=== PATIENT | male | born 1960 | race Caucasian/White ===

== ENCOUNTER 2017-03-13 07:30 | Inpatient (IN) ==
[2017-03-13] MEDS ORDERED: LIDOCAINE 1% (10mg/ml) 10mL MDV SQ ONE (10:18)
[2017-03-13] MEDS ORDERED: ACETAMINOPHEN 500 MG TABLET PO ONE (10:18)
[2017-03-13] MEDS ORDERED: NOZIN NASAL SWAB NAS ONE ×2 (10:18→16:27)
[2017-03-13] MEDS ORDERED: TRANEXAMIC ACID 1,000 MG in NS 100 ML IV ONE (10:18)
[2017-03-13] MEDS ORDERED: CLINDAMYCIN PB 900 MG/50 ML BAG IV ONE (10:18)
[2017-03-13] MEDS ORDERED: FAMOTIDINE PB 20 MG/50 ML BAG IV ONE (10:18)
[2017-03-13] MEDS ORDERED: SALINE FLUSH 10ml SYRINGE IVF PRN (10:18)
[2017-03-13] MEDS ORDERED: METOCLOPRAMIDE 10mg/2ml INJECTION IVP ONE (10:18)
[2017-03-13] MEDS ORDERED: ONDANSETRON 4 MG/2 ML INJECTION IVP ONE (10:18)
[2017-03-13 10:33] VITALS: BMI 51.7
[2017-03-13] MEDS: LR 1,000 ML IV SCH ×2 (10:55→14:47)
--- NOTE | 2017-03-13 11:50 | Anesthesia Preoperative Report ---
Anesthesia Preoperative Record - Date and Time Date: 03/13/17 Preoperative Diagnosis: T84.84XD Rt TKA Rev Proposed Procedure: revision TKA NPO Since Date: 03/13/17 NPO Since Time: 11:49 Allergies/Adverse Reactions: Allergies Allergy/AdvReac Type Severity Reaction Status Date / Time skin margareth Allergy Unknown swelling, Uncoded 02/24/17 15:43 infection amoxicillin trihydrate AdvReac Intermediate C DIFF Uncoded 02/24/17 15:43 potassium clavulanate AdvReac Intermediate C DIFF Uncoded 02/24/17 15:43 - Vital Signs Vital Signs: Temperature 98.6 F 03/13/17 10:32 Pulse Rate 62 03/13/17 11:10 Respiratory Rate 18 03/13/17 10:32 Blood Pressure 152/72 H 03/13/17 11:10 Pulse Oximetry 96 03/13/17 10:32 Oxygen Delivery Method Room Air Height and Weight: Height 1.79 m Weight 165.9 kg Body Mass Index 51.7 - Medications Inpatient Medications: Current Medications Lactated Ringer's (Lactated Ringers) 1,000 mls @ 50 mls/hr IV .Q20H ALBERTO Last Admin: 03/13/17 10:55 Dose: 50 mls/hr Epinephrine HCl 0.25 mg/Bupivacaine HCl 30 ml/Morphine Sulfate 15 mg/Ketorolac Tromethamine 60 mg/Sodium Chloride 65.25 mls @ 1 mls/hr OPSITE INTRAOP ONE PRN Reason: Protocol Stop: 03/16/17 03:32 Lidocaine HCl (Xylocaine-Mpf 1% Vial) 1 mg ID O ONE Stop: 03/13/17 15:34 Sodium Chloride (Iv Flush) 10 - 80 ml IVF PRN PRN PRN Reason: [place] Home Medications: Home Medications Medication Instructions Recorded Confirmed Type Cetirizine HCl [Zyrtec] 1 mg PO HS PRN #0 06/17/10 03/13/17 History albuterol sulfate HFA 90 1 puff INH Q6H PRN 02/24/17 03/13/17 History mcg/actuation aerosol inhaler montelukast 10 mg tablet 10 mg PO DAILY 02/24/17 03/13/17 History sildenafil 50 mg tablet 50 mg PO DAILY PRN 02/24/17 03/13/17 History triamcinolone acetonide 55 1 spray EA NOSTRIL DAILY 02/24/17 03/13/17 History mcg/actuation nasal spray,aerosol Is Patient on Beta Landon?: No - Medical History Respiratory: Reports: Asthma, Sleep Apnea Cardiovascular: Reports: Hypertension Gastrointestional: Reports: Morbid Obesity - Surgical History HEENT Surgeries: Reports: Tonsillectomy Respiratory Surgery/Treatments: Reports: CPAP Use GI Surgery/Treatments: Reports: Appendectomy, Colonoscopy, Other ( hemorrhoidectomy) Musculoskeletal Surgery/Tx: Reports: Total Knee Replacement (Right-2011) Hx Family Anesthesia Reaction: No History of Motion Sickness: No - Social History Smoking Status: Never smoker Hx Chewing Tobacco Use: No Second Hand Exposure: No Substance Use Type: does not use Alcohol Intake Frequency: does not drink - Pertinent Findings EKG Rhythm: Normal Sinus Rhythm - Physical Exam Respiratory Exam: Present: lungs clear Cardiovascular Exam: Present: regular rate and rhythm, no murmur - Airway Assessment Mallampati Score: IV TMD: 3 Fingerbreadths Teeth: chipped teeth/crowns Overall Assessment: may be difficult mask vent, may be difficult intubation - ASA ASA Score: 3 - Plan Regional/Trunk Block: Spinal - Discussion Discussion: Discussed risks/options/alternatives of anesthesia and questions answered. Patient consents. Nursing pain assessment noted. Present for Discussion: spouse Attestation Statement: Prior to the delivery of any anesthetic medication, I examined the patient, developed the plan, obtained the patient's consent and discussed the risk and benefits of the procedure with the patient/guardian. - Additional Information Seen by Anesthesia: Yes
[2017-03-13] MEDS ORDERED: VANCOMYCIN 1,000 MG INJECTION ONE (11:54)
[2017-03-13] MEDS ORDERED: PROPOFOL 500 MG/50 ML VIAL IV ONE (12:02)
[2017-03-13] MEDS ORDERED: PROPOFOL 40 ML ONE (12:02)
[2017-03-13] MEDS ORDERED: MIDAZOLAM 2mg/2ml INJECTION ONE ×2 (12:06→12:35)
[2017-03-13] MEDS ORDERED: GLYCOPYRROLATE 0.4 MG/2 ML INJECTION ONE (12:11)
[2017-03-13] MEDS: EPINEPHrine 0.25 MG, BUPIVACAINE 0.25% PF 30 ML, MORPHINE SULFATE 15 MG, KETOROLAC INJ ... OPSITE ONE (13:20)
[2017-03-13] MEDS ORDERED: PROPOFOL 20 ML ONE ×2 (13:45→14:05)
--- NOTE | 2017-03-13 14:14 | History & Physical Update ---
- History and Physical Update Date: 03/13/17 Update: I evaluated this patient and found no changes in the history and clinical exam findings. The treatment plan and recommendations are also unchanged from the previous documentation.
[2017-03-13] MEDS ORDERED: ROPIVACAINE 0.5% (5mg/ml) 30ml INJ ONE (14:16)
--- NOTE | 2017-03-13 14:16 | Post Procedure Note ---
Date of Procedure: 03/13/17 Orthopedic Surgeon: Roberth Orthopedic Assisting Surgeon: James Caceres Anesthesia: Regional Block Procedure: Procedures Operation Date: 03/13/17 12:30 Actual Procedures p Arthroplasty Revision Total Knee with tibial insert exchange.(Right) - Ru Lepe MD Exchange of tibial spacer from a previous right TKA. Condition: Stable Disposition: floor
[2017-03-13] MEDS ORDERED: VANCOMYCIN 1,000 MG INJECTION IAR ONE (14:26)
--- NOTE | 2017-03-13 14:35 | Anesthesia Procedure Note ---
Peripheral Nerve Blockade - Procedure Physician: Ru Lepe MD Date: 03/13/17 Surgical Procedure: revision tka Discussion: Discussed risks/options/alternatives of anesthesia and questions answered. Patient consents. Nursing pain assessment noted. Block Start: 14:25 Block Stop: 14:29 Blocked Employed: [employer] Indication: Post-Operative Pain Approach: Right Side Confirmed Position: Supine Patient: Consent, Risks/Benefits Discussed, Informed, Post Block Act. Discussed IV Sedation: No Initial Vital Signs: Temperature 98.6 F 03/13/17 10:32 Temperature Source Oral 03/13/17 10:32 Pulse Rate 68 03/13/17 10:32 Respiratory Rate 18 03/13/17 10:32 Blood Pressure 177/102 H 03/13/17 10:32 Blood Pressure Mean 127 03/13/17 10:32 Blood Pressure Position Sitting 03/13/17 10:32 Pulse Oximetry 96 03/13/17 10:32 Oxygen Delivery Method 03/13/17 10:32 Post Vital Signs: Temperature 98.6 F 03/13/17 10:32 Pulse Rate 62 03/13/17 12:12 Respiratory Rate 18 03/13/17 12:12 Blood Pressure 152/72 H 03/13/17 11:10 Pulse Oximetry 96 03/13/17 12:12 Oxygen Delivery Method Room Air Initial Pain Pain Score: 0 Post Block Pain Score: 0 Prep: Chlorhexadine/ETOH Ultrasound Used?: Yes - Injectate Ropivacaine (%): 0.5 Ropivacaine (mL): 20 Was Epi 1:200,000 Used?: No Injection: Injection made incrementally with constant monitoring and aspiration every ml
[2017-03-13] MEDS ORDERED: GLYCOPYRROLATE 0.4 MG/2 ML INJECTION IVP ONE ×2 (15:00→15:17)
--- NOTE | 2017-03-13 15:32 | Anesthesia Postoperative Note ---
- Status Patient Participated in Evaluation: Patient Participated in Person Vital Signs: Temperature 97.5 F 03/13/17 14:19 Pulse Rate 41 L 03/13/17 15:00 Respiratory Rate 22 03/13/17 14:30 Blood Pressure 118/58 03/13/17 15:00 Pulse Oximetry 99 03/13/17 15:00 Oxygen Delivery Method Nasal Cannula Oxygen Flow Rate 3 Respiratory Function: Airway Patent Cardiovascular Function: Regular Pulse EKG Rhythm: Normal Sinus Rhythm Mental Status: Alert and Oriented Pain Intensity: 0 Hydration: Taking PO Fluids, IV Infusing Complications During Recover: None Apparent Post Anesthesia Care Notes: jonathan given IV in PACU for bradycardia - Follow-Up Instructions Instructions: Per Surgeon
[2017-03-13] MEDS ORDERED: LIDOCAINE 1% (10mg/ml) 2mL INJ PF SDV ID ONE (15:33)
[2017-03-13] MEDS ORDERED: DiphenhydrAMINE 25 MG CAPSULE PO PRN (16:27)
[2017-03-13] MEDS ORDERED: NAPROXEN 220 MG TABLET PO PRN (16:27)
[2017-03-13] MEDS ORDERED: DiphenhydrAMINE 50 MG/ML INJECTION IVP PRN (16:27)
[2017-03-13] MEDS ORDERED: CETIRIZINE 10 MG TABLET PO PRN (16:27)
[2017-03-13] MEDS ORDERED: LORazepam 1 MG TABLET PO PRN (16:27)
[2017-03-13] MEDS ORDERED: ALBUTEROL 2.5mg/3ml (0.083%) NEB AEROSOL PRN (16:27)
[2017-03-13] MEDS ORDERED: ONDANSETRON 4 MG/2 ML INJECTION IVP PRN (16:27)
[2017-03-13] MEDS: NS 1,000 ML IV SCH (16:39)
[2017-03-13] MEDS: Oxycodone *IR* 5 MG TABLET PO PRN ×2 (16:53→19:17)
[2017-03-13] MEDS: ACETAMINOPHEN 325 MG TABLET PO SCH ×2 (16:54→22:09)
[2017-03-13] MEDS ORDERED: WARFARIN 5 MG TABLET PO ONE (17:39)
--- NOTE | 2017-03-13 17:46 | Pharmacy Consult ---
Pharmacy Consult-Warfarin - Consult Information 56 y.o. Male postop Arthroplasty revision total knee. Warfarin protocol ordered postop for DVT prophylaxis. goal INR 1.5 to 2.0. Will give Warfarin 5 mg po x 1 dose today. Pharmacy will monitor and adjust as needed. Thank you for the consult, Cynthia Cheng RPh
[2017-03-13] MEDS: CLINDAMYCIN PB 900 MG/50 ML BAG IV SCH ×2 (18:50→23:27)
--- NOTE | 2017-03-13 19:02 | XRay Report ---
EXAM: XR knee RT 2V COMPARISON: 02/27/2013. 04/10/2012. HISTORY: Post op . FINDINGS: Right total hip prosthesis is in place which appears to be in good position and alignment. There is no evidence for loosening, fracture, or infection. IMPRESSION: Right knee prosthesis in place which appears to be in good position and alignment. LOCATION OF DICTATION: [facility] .
[2017-03-13] MEDS ORDERED: SENNOSIDES 8.6 MG TABLET PO SCH (22:00)
[2017-03-13] MEDS: DOCUSATE SODIUM 100 MG CAPSULE PO SCH (22:09)
[2017-03-13] MEDS: NOZIN NASAL SWAB NAS SCH (22:09)
[2017-03-13] MEDS: ENOXAPARIN 40 MG/0.4 ML INJECTION SQ SCH (22:09)
[2017-03-14] MEDS: CLINDAMYCIN PB 900 MG/50 ML BAG IV SCH (05:16)
[2017-03-14] MEDS: NOZIN NASAL SWAB NAS SCH ×2 (05:16→15:42)
[2017-03-14] MEDS: NS 1,000 ML IV SCH (06:15)
--- NOTE | 2017-03-14 07:21 | Pharmacy Consult ---
Pharmacy Consult-Warfarin - Laboratory Information 03/14/17 04:26 INR 1.04 COUMADIN CONSULT (Recurring): Today's INR = 1.04. 56 y.o. Male postop Arthroplasty revision total knee. Warfarin protocol ordered postop for DVT prophylaxis. goal INR 1.5 to 2.0. I ordered Warfarin 5 mg po x 1 dose today. The pharmacy will continue to monitor and adjust as needed. Thank you for the consult, Mike Wheatley, Pharmacist.
--- NOTE | 2017-03-14 07:53 | Orthopedic Progress Note ---
Date: Subjective/Severity of Illness: Simón is feeling well this AM. His pain is well controlled with one Oxycodone. He has been out of bed and says his knee feels much better. Bradycardia is noted on review of vitals today. This was present even preoperatively. He denies any sense of palpitation or chest pain. He describes having had a Holter monitor placed in the past by Dr. Hoffman. Results showed "occasional skipped beats, but the doctor said I was in better health than him". He did have low O2 readings last night. He is known to have JILLIAN, and is on CPAP. Orthopedic Objective PO Vital signs: Temperature 97.8 F 03/14/17 04:00 Pulse Rate 59 L 03/14/17 04:00 Respiratory Rate 18 03/13/17 23:41 Blood Pressure 138/92 H 03/14/17 04:00 Pulse Oximetry 96 03/14/17 04:00 Oxygen Delivery Method Room Air Oxygen Flow Rate 3 Height and Weight: Height 5 ft 10.5 in Weight 365 lb 11.95 oz Body Mass Index 51.7 - Constitutional General Appearance: Present: alert, orientated x3, no acute distress - Respiratory Exam Present: non-labored - Cardiovascular Exam Present: pedal pulses intact Capillary Refill: < 2-3 Seconds - Abdominal Exam Present: normoactive BS x4 - Extremities Exam Extremities: Present: pulses intact, normal capillary refill. Absent: calf tenderness, extremity cold to touch - Knee Exam Knee Exam: Present: ROM (0-90). Absent: painful ROM - Surgical Site Incision: clean, dry, intact, no drainage - Integumentary Exam Present: pink, warm, dry - Neurological Exam Present: intact to light touch, no deficits - Psychiatric Exam Present: normal affect, attentive - Wound Management Right Knee Secondary Dressing: Mepilex - Labs Result Diagrams: 03/14/17 04:26 03/14/17 04:26 Abnormal lab results 03/14/17 Range/Units 04:26 Hgb 12.9 L (13.5-17.5) GM/DL Hct 39.2 L (41-53) % H & H 03/14/17 Range/Units 04:26 Hgb 12.9 L (13.5-17.5) GM/DL Hct 39.2 L (41-53) % Coagulation 03/14/17 Range/Units 04:26 INR 1.04 (0.99-1.21) Orthopedic Assessment and Plan (1) Pain due to internal orthopedic prosthetic devices, implants and grafts, subsequent encounter Status: Acute Assessment and Plan: Mobilize with PT Lovenox/Coumadin for DVT prevention monitor with telemetry in view of bradycardia Likely discharge late today. Hospital Course Summary Disclaimer: The visit summary below is not to be considered part of the above Progress Note.
[2017-03-14] MEDS ORDERED: BENAZEPRIL 10 MG TABLET PO SCH (09:00)
[2017-03-14] MEDS ORDERED: MONTELUKAST 10 MG TABLET PO SCH (09:00)
[2017-03-14] MEDS ORDERED: FLUTICASONE NASAL SPRAY 50mcg EA NOSTRIL SCH (09:00)
[2017-03-14] MEDS ORDERED: POLYETHYL GLYCOL 3350 17gm PACKET PO SCH (09:00)
[2017-03-14] MEDS ORDERED: SALINE FLUSH 10ml SYRINGE IVF PRN (09:29)
[2017-03-14] MEDS: ACETAMINOPHEN 325 MG TABLET PO SCH ×2 (09:38→13:09)
[2017-03-14] MEDS: DOCUSATE SODIUM 100 MG CAPSULE PO SCH (09:40)
[2017-03-14] MEDS: Oxycodone *IR* 5 MG TABLET PO PRN ×2 (09:54→15:39)
--- NOTE | 2017-03-14 11:42 | Cardiology Consult Note ---
History of Present Illness Consult date: 03/14/17 <Jodi Cano 03/14/17 11:49> Requesting physician: Ru Lepe <Jodi Cano 03/14/17 11:49> Chief complaint: bradycardia <JeromeJodi grover 03/14/17 11:49> History of present illness: Simón is a 56 year old male who has a history of HTN , HLD, JILLIAN and obesity who underwent right total knee replacement and has had some post-operative bradycardia for which Dr. Villalta is consulted/ He denies chest pain or pressure, palpitations, racing or skipping heart beats. No dyspnea , dizziness, lightheadedness or near syncope. <Jodi Cano 03/14/17 11:49> Review of Systems - Constitutional Constitutional: Absent: chills, fever(s) <Jodi Cano 03/14/17 11:49> - EENMT Eyes: Absent: change in vision <Jodi Cano 03/14/17 11:49> Balance: Absent: vertigo <Jodi Cano 03/14/17 11:49> Mouth/Throat: Absent: sore throat <Jodi Cano 03/14/17 11:49> - Cardiovascular Cardiovascular: Absent: chest pain, palpitations, syncope, dyspnea on exertion, orthopnea, heart murmur <Jodi Cano 03/14/17 11:49> Rhythm: Present: regular rhythm <Jodi Cano 03/14/17 11:49> - Respiratory Respiratory: Absent: cough, dyspnea <Jodi Cano 03/14/17 11:49> - Gastrointestinal Gastrointestinal: Absent: diarrhea, nausea, vomiting <Jodi Cano 11:49> - Genitourinary Genitourinary: Absent: dysuria <Jodi Cano 03/14/17 11:49> - Integumentary/Breasts Integumentary: Absent: rash <Jodi Cano 03/14/17 11:49> - Neurological Neurological: Absent: dizziness <Jodi Cano 03/14/17 11:49> [facility] Patient Stated Medical History Peripheral Neuropathy Yes: in feet Cardiac Arrhythmia Yes Hypertension Yes Asthma Yes Sleep Apnea Yes Osteoarthritis Yes Clostridium Difficile Yes: after Augmentin MRSA Yes: on back of neck several years ago Anesthesia Reactions Yes: Too awake w/ spinal during TKA Clinic Medical History (Last Updated 03/14/17 @ 11:55 by Jodi Cano APRN) Asthma due to seasonal allergies (Chronic Medical) Hypertension, benign (Chronic Medical) Obstructive sleep apnea (Chronic Medical) Seasonal allergic rhinitis (Chronic Medical) <Chino Villalta 03/15/17 12:01> Patient Stated Medical History Peripheral Neuropathy Yes: in feet Cardiac Arrhythmia Yes Hypertension Yes Asthma Yes Sleep Apnea Yes Osteoarthritis Yes Clostridium Difficile Yes: after Augmentin MRSA Yes: on back of neck several years ago Anesthesia Reactions Yes: Too awake w/ spinal during TKA Clinic Medical History (Last Updated 02/24/17 @ 16:14 by Kathryn Villasenor APRN ) Asthma due to seasonal allergies (Chronic Medical) Seasonal allergic rhinitis (Chronic Medical) Hypertension, benign (Chronic Medical) Obstructive sleep apnea (Chronic Medical) <Jodi Cano 03/14/17 11:49> Surgical History: Rt TKA 6 yrs ago. Appendectomy. Colonscopy 2014 <Jodi Cano 03/14/17 11:49> Family History: Family History (Last Reviewed 02/24/17 @ 10:26 by RAJNI Flores) Mother Aneurysm High blood pressure Breast cancer Father High blood pressure Colon cancer Kidney disease Thyroid disease Sister Breast cancer <Chino Villalta - 03/15/17 12:01> Family History (Last Reviewed 02/24/17 @ 10:26 by RAJNI Flores) Mother Aneurysm High blood pressure Breast cancer Father High blood pressure Colon cancer Kidney disease Thyroid disease Sister Breast cancer <Jodi Cano 03/14/17 11:49> - Social History Smoking status: Never smoker <Jodi Cano 03/14/17 11:49> Substance use type: does not use <Jodi Cano 03/14/17 11:49> Alcohol intake frequency: holidays/special occasions only <Jodi Cano 11:49> Housing: house <Jodi Cano 03/14/17 11:49> Household members: spouse, children <Jodi Cano 03/14/17 11:49> Current occupational status: employed <Jodi Cano M - 03/14/17 11:49> 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 <Jodi Cano M - 03/14/17 11:49> Current residence: Apartment/Private Home <Jodi Cano Pedro - 03/14/17 11:49> Medications Home Medications Medication Instructions Recorded Confirmed Type Cetirizine HCl [Zyrtec] 1 mg PO HS PRN #0 06/17/10 03/13/17 History albuterol sulfate HFA 90 1 puff INH Q6H PRN 02/24/17 03/13/17 History mcg/actuation aerosol inhaler montelukast 10 mg tablet 10 mg PO DAILY 02/24/17 03/13/17 History sildenafil 50 mg tablet 50 mg PO DAILY PRN 02/24/17 03/13/17 History triamcinolone acetonide 55 1 spray EA NOSTRIL DAILY 02/24/17 03/13/17 History mcg/actuation nasal spray,aerosol <Chino Villalta - 03/15/17 12:01> Allergies Allergy/AdvReac Type Severity Reaction Status Date / Time amoxicillin [From Augmentin] AdvReac Intermediate C DIFF Verified 03/14/17 07:26 clavulanic acid AdvReac Intermediate C DIFF Verified 03/14/17 07:26 [From Augmentin] skin margareth Allergy Unknown swelling, Uncoded 02/24/17 15:43 infection <Chino Villalta - 03/15/17 12:01> Exam Vital signs: Temperature 97.0 F 03/14/17 11:00 Pulse Rate 68 03/14/17 16:00 Respiratory Rate 20 03/14/17 11:00 Blood Pressure 153/93 H 03/14/17 11:00 Pulse Oximetry 94 03/14/17 11:00 Oxygen Delivery Method Room Air Oxygen Flow Rate 3 <Chino Villalta - 03/15/17 12:01> Temperature 97.1 F 03/14/17 07:50 Pulse Rate 49 L 03/14/17 07:50 Respiratory Rate 18 03/14/17 07:50 Blood Pressure 137/92 H 03/14/17 07:50 Pulse Oximetry 95 03/14/17 07:50 Oxygen Delivery Method Room Air Oxygen Flow Rate 3 <Jodi Cano 03/14/17 11:49> - Constitutional no acute distress, morbidly obese, cooperative <Jodi Cano 03/14/17 11: 49> - Routine HEENT Exam Head: Present: normocephalic <Jodi Cano 03/14/17 11:49> Nose: moist mucous membranes <Jodi Cano 03/14/17 11:49> - Routine Neck Exam Absent: JVD, carotid bruit <Jodi Cano 03/14/17 11:49> - Routine Chest/Breast/Axilla Exam Chest wall: Absent: tenderness <Jodi Cano 03/14/17 11:49> - Routine Respiratory Exam Present: CTA bilaterally. Absent: rales, wheezes <Jodi Cano 03/14/17 11:49> - Routine Cardiovascular Exam Present: no murmur, bradycardia. Absent: JVD <Jodi Cano 03/14/17 11:49 > - Routine Abdominal Exam Present: soft, normoactive bowel sounds <Jodi Cano 03/14/17 11:49> - Routine Extremities Exam Present: edema <Jodi Cano 03/14/17 11:49> - Routine Skin Exam Present: intact, dry, warm <Jodi Cano 03/14/17 11:49> - Routine Neurological Exam Present: alert, oriented X3 <Jodi Cano [facility] 03/14/17 11:49> - Routine Psychiatric Exam Present: normal affect, normal thought process <Jodi Cano 03/14/17 11: 49> Results 03/14/17 04:26 03/14/17 04:26 <Chino Villalta - 03/15/17 12:01> CBC 03/14/17 Range/Units 04:26 WBC 6.5 (4.5-11.0) T/MM3 RBC 4.60 (4.50-5.90) M/MM3 Hgb 12.9 L (13.5-17.5) GM/DL Hct 39.2 L (41-53) % Plt Count 226 (130-400) T/MM3 Comprehensive Metabolic Panel 03/14/17 Range/Units 04:26 Sodium 140 (134-144) MEQ/L Potassium 4.1 (3.6-5) MEQ/L Chloride 106 (98-107) MEQ/L Carbon Dioxide 29 (22-30) MEQ/L BUN 20.0 (9-20) MG/DL Creatinine 1.2 (0.8-1.5) MG/DL Glucose 90 (75-110) MG/DL Calcium 9.2 (8.4-10.2) MG/DL Intake and Output 03/13/17 03/14/17 03/14/17 22:59 06:59 14:59 Intake Total 2145.500 / 2145.500 954.666 / 954.666 542.667 / 542.667 Output Total 300 / 300 425 / 425 275 / 275 Balance 1845.500 / 1845.500 529.666 / 529.666 267.667 / 267.667 Intake: IV 965.500 / 965.500 854.666 / 854.666 70.667 / 70.667 CLEOCIN PREMIX 900 mg In 50 / 50 100 / 100 50 ml @ 100 mls/hr IV Q6H ALBERTO Rx#:[id number] Lactated Ringers 1,000 ml 740.833 / 740.833 @ 50 mls/hr IV .Q20H ALBERTO Rx#:[id number] Normal Saline 1,000 ml @ 174.667 / 174.667 754.666 / 754.666 70.667 / 70.667 80 mls/hr IV .[id number] ALBERTO Rx#:[id number] Oral 1180 / 1180 100 / 100 472 / 472 Output: Urine 300 / 300 425 / 425 275 / 275 Other: # Voids 1 Laboratory Results - last 48 hr 03/14/17 03/14/17 03/14/17 04:26 04:26 04:26 WBC 6.5 RBC 4.60 Hgb 12.9 L Hct 39.2 L MCV 85.2 MCH 28.0 MCHC 32.9 RDW Std Deviation 42.3 Plt Count 226 MPV 9.6 INR 1.04 Turbidity < 20 Sodium 140 Potassium 4.1 Chloride 106 Carbon Dioxide 29 Anion Gap 5 BUN 20.0 Creatinine 1.2 GFR Calculation 62 BUN/Creatinine Ratio 17 Glucose 90 Calculated Osmolality 272 Calcium 9.2 Icterus Index < 2 Specimen Hemolysis < 15 <Jodi Cano Pedro - 03/14/17 11:49> - Imaging and Cardiology Echo: pending <Jodi Cano Pedro - 03/14/17 11:49> EKG results: image reviewed <JeromeJodi Vasquez 03/14/17 11:49> Assessment and Plan (1) Obstructive sleep apnea Status: Chronic (2) Hypertension, benign Status: Chronic (3) Mixed hyperlipidemia Status: Chronic (4) Bradycardia Status: Acute (5) Status post total right knee replacement Status: Acute <AmbarChino - 03/15/17 12:01> (1) Bradycardia Status: Acute HR in the upper 40s and lower 50s. He is asymptomatic. Has no previous history of heart disease. Risk factors are HTN, HLD. Will check TSH, Mag, obtain EKG and Echo. (2) Hypertension, benign Status: Chronic Continue current therapy, routine monitoring (3) Mixed hyperlipidemia Status: Chronic (4) Obstructive sleep apnea Status: Chronic (5) Status post total right knee replacement Status: Acute <JeromeJodi Pedro 03/14/17 12:59> - Attestation Attestation Narrative: 03/15/17 12:01 Recommendation After examining the patient I agree with the above assessment. I am involved in the formulation of the patient's plan of care. <Chino Villalta 03/15/17 12:01> Hospital Course Summary Disclaimer: The visit summary below is not to be considered part of the above Progress Note. <Chino Villalta - 03/15/17 12:01> The visit summary below is not to be considered part of the above Progress Note. <Jodi Cano 03/14/17 11:49> Sepsis Assessment - Evaluation Sepsis screening result: No Definite Risk <Jodi Cano 03/14/17 11:49>
[2017-03-14] MEDS ORDERED: CLINDAMYCIN PB 900 MG/50 ML BAG IV ONE (12:00)
[2017-03-14] MEDS ORDERED: WARFARIN 5 MG TABLET PO SCH (12:00)
[2017-03-14 13:51] VITALS: BP 153/93; PULSE 68; RESP 20; TEMP 97; O2SAT 94
[2017-03-14] MEDS ORDERED: CLINDAMYCIN 300 MG CAPSULE PO ONE (14:00)
[2017-03-14] MEDS ORDERED: SENNOSIDES 8.6 MG TABLET PO PRN (14:10)
--- NOTE | 2017-03-14 14:38 | Operative Note ---
DATE 03/13/2017 SURGEON Ru Lepe MD EMAIL MANAGER James Caceres PA-C PREOPERATIVE DIAGNOSIS Polyethylene failure, right total knee. POSTOPERATIVE DIAGNOSIS Polyethylene failure, right total knee. OPERATION Revision of right total knee, polyethylene exchange. DESCRIPTION OF PROCEDURE With the patient in supine position, under satisfactory spinal anesthesia, the right knee was prepped and draped sterilely. Preop time-out was taken confirming the correct side and procedure. The patient received antibiotics and tranexamic acid preoperatively. The tourniquet was inflated and an incision was made over the anterior aspect of the knee, excising the prior scar. This was then deepened down through subcutaneous tissue. The medial capsule was opened with the incision extending both proximally and distally to allow for thorough exposure. Patella was reflected somewhat laterally. The medial side was taken down to improve exposure as well. It was evident that the polyethylene spacer had popped out of the locking tray and was loose which would certainly explain this patient's symptoms and findings. The spacer was then removed without difficulty and the periphery was debrided of any scar tissue so that a new spacer could be inserted. The area was then thoroughly irrigated with antibiotic solution. Trials were done. We put in a Benkyo Player double-high 12 mm spacer. This was locked into the tibial tray. The patient had full extension and flexed to better than 100 degrees easily. Overall stability seemed good. Wound was then again irrigated. Betadine was inserted into the wound for about 2-3 minutes. We also injected the pain cocktail in the capsule and subcutaneous tissues around the knee. Vancomycin powder was then inserted and the wound was closed using #1 Vicryl on the capsule and routine closure of the skin. Sterile dressings were applied. The patient tolerated this well and was returned to the recovery room in good condition. RADHA
--- NOTE | 2017-03-14 14:49 | Discharge Summary ---
Orthopedic Discharge Info Date of admission: 03/13/17 10:08 Anticipated date of discharge: 03/14/17 Primary care physician: Simón Casillas MD Attending Physician: Ru Lepe MD Consults: 03/13/17 10:18 Consult to Anesthesiology [CONS] Routine Consulting Provider: MURIEL Smith Reason For Exam: Preoperative Assessment 03/13/17 16:27 Case Management Consult [CONS] Routine Reason For Exam: Discharge Planning DME-Walker [CONS] Routine Height: 5 ft 10.5 in Weight: 365 lb 11.95 oz Comment: change dressing in 2 weeks Pharmacy Consult [CONS] Routine Pharmacy Consult: Coumadin/Warfarin Total Joint Outpatient Therapy [CONS] Routine Comment: change dressing in 2 weeks 03/14/17 11:25 Physician Consult [CONS] Routine Consulting Provider: Chino Villalta Reason For Exam: BRADYCARDIA Ordering Provider has Notified Disease Intervention Specialist: Yes - Discharge Diagnosis (1) Pain due to internal orthopedic prosthetic devices, implants and grafts, subsequent encounter Status: Acute - Procedures Procedures: Procedures Total knee replacement (04/10/12) Poly spacer exchange R TKA 03/13/17. - Laboratory Result Diagrams: 03/14/17 04:26 03/14/17 04:26 Laboratory: Abnormal lab results 03/14/17 Range/Units 04:26 Hgb 12.9 L (13.5-17.5) GM/DL Hct 39.2 L (41-53) % H & H 03/14/17 Range/Units 04:26 Hgb 12.9 L (13.5-17.5) GM/DL Hct 39.2 L (41-53) % Coagulation 03/14/17 Range/Units 04:26 INR 1.04 (0.99-1.21) Orthopedic Discharge HPI - HPI Comments Simón had a R TKA about [address] Lepe. He developed a sudden onset of pain and had a shifting sensation in the knee. Xrays suggested the tibial spacer had slipped out of the tibial tray. Pt was admitted for surgical revision and possible exchange of the tibial spacer. See H&P for more details. Orthopedic Hospital Course Hospital course: 03/14/17 14:45 After appropriate preoperative clearance and signing of operative consent, the patient was given IV antibiotics, according to orthopedic protocol. The patient was taken to the operating room and underwent exchange of the poly spacer on his previously replaced TKA.. Following surgery, antibiotics were discontinued less than 24 hours according to joint protocol. Lovenox and Coumadin were initiated and SCDs added for DVT prevention. The dressing was clean, dry, and intact. Pain control was obtained via multimodal approach. Bowel motivation addressed with scheduled and PRN medications. Early mobilization was initiated through PT services. Discharge arrangements made by a collaborative effort between the patient and Case Management. Simón was noted to be bradycardic with HR in the 40's. Cardiology services was consulted. ECHO, Mg, TSH were all completed. Pt is not symptomatic and tolerating the bradycardia well. No further intervention required at this time. Follow-up is scheduled in 2-3 weeks. Discharge instructions given by orthopedic providers and nursing staff at discharge. Discharge condition was good. Ongoing care required?: No Discharge Plan - Med Rec/Dispo Referrals/Follow Up: Ru Lepe MD [Physician] - 03/28/17 9:30 am [place] Instructions: Revision Total Joint Arthro[place] [facility] Postop Instructions Additional Instructions: DR CASILLAS AT [facility] ON 03/17/2017 FOR INR LAB DRAW. THEN TWICE A WEEK (MONDAYS AND THURSDAYS) FOR THE FOLLOWING FOUR WEEKS. PHONE [phone] [facility] ON 03/17/2017 AT 8:15AM FOR PHYSICAL THERAPY EVAL WITH ANAHY. COMPLETE THE PAPERWORK IN THE [facility] PRIOR TO THE APPOINTMENT. PHONE Prescriptions: New Acetaminophen [Tylenol] 650 mg PO QID #60 tablet Docusate Sodium [Colace] 100 mg PO BID #60 capsule Fluticasone Nasal [place] [Flonase] 2 spray EA NOSTRIL DAILY #1 bottle Milk of Magnesia [Mom] 30 ml PO DAILY #1 udc Naproxen [Aleve] 440 mg PO BID PRN #60 tablet PRN Reason: Pain PEG 3350 17gm PACKET [Miralax] 17 gm PO DAILY 30 Days Warfarin [Coumadin] 2 tab PO NOON #60 tab Enoxaparin Sodium [Lovenox] 40 mg SQ Q24H #5 syringe Oxycodone *Ir* [Roxicodone *Ir*] 5 - 15 mg PO Q3H PRN #60 tablet PRN Reason: Breakthrough Pain Continue Montelukast Sodium [Singulair] 10 mg PO DAILY #30 Cetirizine HCl [Zyrtec] 1 mg PO HS PRN #0 PRN Reason: Allergy Symptoms Albuterol Sulfate [Proventil Hfa] 1 puff INH Q6H PRN #1 PRN Reason: Allergy Symptoms benazepril 10 mg tablet 10 mg PO DAILY #90 tab albuterol sulfate HFA 90 mcg/actuation aerosol inhaler 1 puff INH Q6H PRN PRN Reason: Allergy Symptoms sildenafil 50 mg tablet 50 mg PO DAILY PRN PRN Reason: Erectile Dysfunction montelukast 10 mg tablet 10 mg PO DAILY No Action triamcinolone acetonide 55 mcg/actuation nasal spray,aerosol 1 spray EA NOSTRIL DAILY - Disposition Discharged Home, Self-Care
[2017-03-14] MEDS: ENOXAPARIN 40 MG/0.4 ML INJECTION SQ SCH (16:28)
--- NOTE | 2017-03-15 12:41 | Echocardiogram ---
DATE OF PROCEDURE March 14, [address] uR Lepe This is a two-dimensional echo with spectral Doppler, color-flow and M-mode. It was obtained in a patient with bradycardia and hypertension. Left atrial dimension is normal. Left ventricle end-diastolic dimension is mildly increased. Left ventricular wall thickness is normal. LV systolic function is normal with ejection fraction of 64%. Right atrium is normal. Right ventricle is normal. Aortic root dimension is normal. Mitral valve is morphologically normal with trace of mitral regurgitation. Aortic valve is a trileaflet structure with no stenosis or insufficiency. Tricuspid valve shows trace of tricuspid regurgitation with normal estimated pulmonary artery systolic pressure of 25. Pulmonary valve shows no pulmonary insufficiency. There is no pericardial effusion. IMPRESSION 1. Normal LV systolic function with ejection fraction of 64%. 2. Mild left ventricular dilation. 3. Trace of mitral regurgitation. 4. Trace of tricuspid regurgitation with normal estimated pulmonary artery systolic pressure of 25. MTDD
[2017-03-15] MEDS ORDERED: BISACODYL 10 MG SUPPOSITORY RECTALLY SCH (20:00)
== END 2017-03-14 16:42 | disposition home or self-care (01) | DRG 488 ==
LOC: SRG 10:08
PROVIDERS: ADMIT Orthopaedic Surgery; ATTEND Orthopaedic Surgery